=== PATIENT | male | born 1970 | race American Indian/Alaskan Native ===

== ENCOUNTER 2017-10-10 06:39 | Day surgery (SDC) | payer OTHER ==
[2017-10-09 16:08] LABS: Absolute Lymphocytes (CBC) 2.2 K/uL (0.7-4.9); Absolute Monocytes 0.9 K/uL (0.1-1.3); Absolute Neutrophil 6.5 K/uL (1.8-8.0); Basophils % 0.7 % (0-1.3); Eosinophils % 3.9 % (0-4.4); Hematocrit 42.8 % (39.6-49.0); Lymphocytes % 21.5 % (15.3-44.8); MCH 30.5 pg (27.0-35.0); MPV 8.6 fL (7.6-11.3); Monocytes % 9.3 % (3.3-12.3); RBC Red Blood Cell Count 4.65 M/uL (4.33-5.43)
[2017-10-09 16:10] LABS: Protime INR 1.01
[2017-10-09 16:15] LABS: Potassium 4.5 mEq/L (3.6-5.0)
[2017-10-10] MEDS ORDERED: NA CHLORIDE 0.9% 500 ML ONE (07:01)
[2017-10-10] MEDS ORDERED: HEPA 1000U/500MLS 1,000 UNIT/500 ML BAG IV ONE (07:26)
[2017-10-10] MEDS ORDERED: LIDOCAINE 1% 20 ML MDV ONE (07:26)
[2017-10-10] MEDS ORDERED: MIDAZOLAM HCL 2 MG/2 ML INJ ONE (07:41)
[2017-10-10] MEDS ORDERED: NA CHLORIDE 0.9% 0 ML ONE (07:41)
[2017-10-10] MEDS ORDERED: ATROPINE SULF 1 MG/10 ML SYR IV ONE (07:41)
--- NOTE | 2017-10-10 21:42 | OP ---
Date of Procedure: 10/10/2017 Surgeon: Odell Fisher MD [employer] Portal Developer: Angella Moreno. Procedure: This is a left heart catheterization with selective coronary arteriogram. Indications: Mr. Aiken is a 47-year-old, [place] man with history of diabetes, hypertension, dysli pidemia, recent episode of chest pain and positive stress test, admitted as an outpatient for heart c atheterization. He was given 2 mg of 4 of Versed for IV sedation. A 6-Kyrgyz sheath was introduced in the right common femoral artery. StarClose was used to close the case. Coronary angiography was done using 6-Kyrgyz catheters, 6-Kyrgyz left Geoff and 6-Kyrgyz right Geoff catheter. He had sev ere triple-vessel disease. He had a 99% proximal LAD with collaterals to the circ and RCA was codomi nant. He had a completely occluded RCA with ARNOLD 1 flow. Completed occluded circumflex proximal wit h ARNOLD 1 flow with good distal vessel size. The patient tolerated the procedure well. There were no complications. Blood Loss: 5 cc. The plan is for him to undergo coronary artery bypass surgery x3. HANSEN to the LAD graft, saphenous v ein graft to the OM and PDA off the RCA. The case was discussed with the family. Total conscious sedation was 30 minutes. The patient will b e transferred to [facility] today to Dr. Monroe's service. He has the CD with him. Operators: Matilda Lutz Voice ID: [id number] Report ID: [id number]
== END 2017-10-10 10:00 | disposition short-term general hospital (02) ==
LOC: CCL 06:39
PROC: 4A023N7 Measurement of Cardiac Sampling and Pressure, Left Heart, Percutaneous Approach (ICD-10-PCS; principal; 2017-10-10)
PROC: B201YZZ Plain Radiography of Multiple Coronary Arteries using Other Contrast (ICD-10-PCS; 2017-10-10)
PROC: B205YZZ Plain Radiography of Left Heart using Other Contrast (ICD-10-PCS; 2017-10-10)
DX: I25.10 Atherosclerotic heart disease of native coronary artery without angina pectoris (principal); I25.82 Chronic total occlusion of coronary artery; I10 Essential (primary) hypertension; E78.6 Lipoprotein deficiency; E11.9 Type 2 diabetes mellitus without complications; F17.210 Nicotine dependence, cigarettes, uncomplicated
CPT/HCPCS: 36415; 80048; 82962; 85025; 85610; 85730; 93458; C1893; J0583; J2250